=== PATIENT | female | born 1990 | race Hispanic/Latino ===

== ENCOUNTER → 2025-04-28 | Outpatient (CLI) | payer MEDICAID ==
--- NOTE | 2025-04-28 23:25 | HMCIMG ---
MR CERVICAL SPINE WITHOUT IV CONTRAST Clinical History: M54.2 Cervicalgia Technique: Magnetic resonance images of the cervical spine without intravenous contrast in multiple planes. Series acquired: 2 - LOCALIZER - TR: 700.0 - TE: 79.9 - ET: 1.0 - Thk: 5.0 300 - SC:SAG T2 FRFSE - TR: 3471.0 - TE: 118.8 - ET: 27.0 - Thk: 3.0 400 - SC:SAG T1 FSE - TR: 453.0 - TE: 16.1 - ET: 4.0 - Thk: 3.0 500 - SC:SAG STIR - TR: 4352.0 - TE: 39.7 - ET: 13.0 - Thk: 3.0 600 - SC:AX T2 FRFSE - TR: 4848.0 - TE: 119.4 - ET: 14.0 - Thk: 3.0 Contrast: None. Comparison: None provided. Findings: Vertebrae: No compressions are seen. No masses are seen. There is no infiltrative bone marrow disease. Alignment: Bony alignment is anatomic with loss of cervical lordosis. Spinal Cord/Brain: No abnormality is seen in the cord. No abnormality is seen in the visualized portions of the brain. Findings by Level: C2-C3: The disc space height is maintained. There is adequate disc hydration. There is no bulge or herniation. No neural foraminal stenosis is seen. No spinal canal stenosis is seen. Facets are normal. C3-C4: The disc space height is maintained. There is mild disc desiccation. An asymmetrical disc osteophyte complex is noted causing grade I central canal stenosis with impingement on the ventral nerve root on the left side. No neural foraminal stenosis is identified. Facets are normal. C4-C5: The disc space height is maintained. There is adequate disc hydration. There is no bulge or herniation. No neural foraminal stenosis is seen. No spinal canal stenosis is seen. Facets are normal. C5-C6: The disc space height is maintained. There is mild disc desiccation. A disc osteophyte complex is causing compression of the thecal sac and grade I central canal stenosis. No neural foraminal stenosis is seen. Facets are normal. C6-C7: The disc space height is maintained. There is mild disc desiccation. A disc osteophyte complex is causing compression of the thecal sac and grade I central canal stenosis. No neural foraminal stenosis is seen. Facets are normal. C7-T1: The disc space height is maintained. There is adequate disc hydration. There is no bulge or herniation. No neural foraminal stenosis is seen. No spinal canal stenosis is seen. Facets are normal. Paraspinal Soft Tissues: No soft tissue abnormality is noted. IMPRESSION: 1. Grade I central canal stenosis at C3-C4, C5-C6, and C6-C7 levels due to disc osteophyte complexes, with left ventral nerve root impingement at C3-C4. /[place]
== END | disposition home or self-care (01) ==
LOC: RAH 13:38
PROVIDERS: ATTEND Family Medicine
DX: M48.02 Spinal stenosis, cervical region (principal); M25.78 Osteophyte, vertebrae; M50.323 Other cervical disc degeneration at C6-C7 level; M50.322 Other cervical disc degeneration at C5-C6 level; M50.31 Other cervical disc degeneration, high cervical region; M40.50 Lordosis, unspecified, site unspecified; G89.29 Other chronic pain
CPT/HCPCS: 72141